=== PATIENT | female | born 1985 ===

== ENCOUNTER 2023-10-10 18:35 | Emergency (ER) | payer BC ==
[2023-10-10] MEDS: Cephalexin 500 MG Cap PO ONE (19:21)
== END 2023-10-10 20:02 | disposition home or self-care (01) ==
LOC: DL.ED 18:35
DX: L03.114 Cellulitis of left upper limb (principal); Z88.0 Allergy status to penicillin; Z88.6 Allergy status to analgesic agent; Z88.8 Allergy status to other drugs, medicaments and biological substances; Z79.899 Other long term (current) drug therapy
CPT/HCPCS: 99283; A9270